=== PATIENT | female | born 1940 | race Caucasian/White ===

== ENCOUNTER 2018-01-30 11:44 | Emergency (ER) | payer MEDICARE, OTHER ==
[2018-01-30 12:06] VITALS: BP 144/59
--- NOTE | 2018-01-30 12:10 | ER Document Report ---
HPI - HPI Patient complains to provider of: Left ankle pain since swelling Onset: Yesterday - PM Pain Level: 3 Context: 77-year-old female visiting the area is complaining of left ankle pain and swelling without an injury that started last night. She has a history of gout and previous fracture. She knows how to use crutches she does not want them. She treated her gout in the past with prednisone. Associated Symptoms: None Exacerbated by: Movement Relieved by: Denies Similar symptoms previously: Yes Recently seen / treated by doctor: No - ROS ROS below otherwise negative: Yes Systems Reviewed and Negative: Yes All other systems reviewed and negative - MUSCULOSKELETAL Musculoskeletal: REPORTS: Extremity pain - left ankle Past Medical History - General Information source: Patient - Social History Smoking Status: Current Every Day Smoker Chew tobacco use (# tins/day): No Frequency of alcohol use: Occasional Drug Abuse: None Lives with: Family Family History: Reviewed & Not Pertinent Patient has suicidal ideation: No Patient has homicidal ideation: No - Past Medical History Cardiac Medical History: Reports: Hx Hypertension Pulmonary Medical History: Reports: Hx Asthma, Hx COPD Renal/ Medical History: Denies: Hx Peritoneal Dialysis Past Surgical History: Reports: Hx Abdominal Surgery - hernia, Hx Hysterectomy, Hx Orthopedic Surgery - rotator cuff x 2 ulnar nerve Vertical Provider Document - CONSTITUTIONAL Agree With Documented VS: Yes Exam Limitations: No Limitations - INFECTION CONTROL TRAVEL OUTSIDE OF THE [place] IN LAST 30 DAYS: No - MUSCULOSKELETAL/EXTREMETIES Musculoskeletal/Extremeties: Edema - Warm left ankle joint with soft tissue swelling, 2+ DP, no signs of infection in the skin, no rash, increased pain when I try to have her move her ankle joint - NEURO Level of Consciousness: Alert Motor/Sensory: No Motor Deficit, No Sensory Deficit - DERM Integumentary: No Rash Course - Vital Signs Vital signs: Temp Pulse Resp BP Pulse Ox 98.5 F 86 16 144/59 H 98 01/30/18 12:05 01/30/18 12:05 01/30/18 12:05 01/30/18 12:05 01/30/18 12:05 Discharge - Discharge Clinical Impression: Left ankle gout Condition: Good Disposition: HOME, SELF-CARE Instructions: Gout ([facility]), Gout Diet ([facility]), Steroid Medication Additional Instructions: crutches prednisone for 4 more days see your doctor when you get home to er here while visiting if worsening symptoms Prescriptions: Prednisone [Deltasone 20 mg Tablet] 40 mg PO DAILY #8 tablet
[2018-01-30] MEDS ORDERED: PREDNISONE 20 MG TABLET PO ONE (12:17)
== END 2018-01-30 12:40 | disposition home or self-care (01) ==
LOC: ER 11:44
DX: M10.9 Gout, unspecified (principal); M25.572 Pain in left ankle and joints of left foot; M79.89 Other specified soft tissue disorders; F17.200 Nicotine dependence, unspecified, uncomplicated
CPT/HCPCS: 99283; A9270; J7512